=== PATIENT | female | born 1990 | race Caucasian/White ===

== ENCOUNTER 2020-01-05 00:25 | Emergency (ER) | payer OTHER ==
[~2020-01-05] VITALS: Ht 160 cm; Wt 54.4 kg
[~2020-01-05 00:25] MED LIST: BACTRIM DS 8001 TA1 PO; IBU800 M1 PO; PRENATAL1 TA2 PO; TRAMADOL HCL50 MG PO
[2020-01-05 01:55] LABS: BASO # 0.1 10*3/uL (0.0-0.1); BASO % 0.4 % (0.0-1.0); EOS # 0.3 10*3/uL (0.0-0.4); EOS % 2.2 % (1.0-4.0); LYMPH # 2.2 10*3/uL (1.3-4.4); LYMPH % 14.3 % (27.0-41.0); MEAN CELL VOLUME 92.7 fl (81.0-99.0); MEAN CORPUSCULAR HGB 29.7 pg (27.0-31.0); MEAN CORPUSCULAR HGB CONC 32.1 g/dl (33.0-37.0); MONO % 6.8 % (3.0-9.0); NEUT # 11.4 10*3/uL (2.3-7.9); NEUT % 75.4 % (47.0-73.0); PLATELET COUNT AUTOMATED 320 10*3/uL (130-400); RED BLOOD COUNT 4.64 10*6/uL (4.10-5.10); RED CELL DISTRI WIDTH 13.2 % (0-14.5); WHITE BLOOD COUNT 15.1 10*3/uL (4.8-10.8)
[2020-01-05 02:11] LABS: ALBUMIN 3.3 gm/dl (3.1-4.5); ALKALINE PHOSPHATASE 69 U/L (45-117); BUN 14 mg/dl (7-24); CHLORIDE 112 mmol/L (98-107); CREATININE 0.68 mg/dL (0.55-1.02); POTASSIUM 3.5 mmol/L (3.5-5.1); SGOT/AST 9 IU/L (3-35); SGPT/ALT 17 U/L (12-78); SODIUM 142 mmol/L (136-145)
[2020-01-05 03:13] LABS: BILIRUBIN NEGATIVE (NEGATIVE); BLOOD 3+ (NEGATIVE); CLARITY SL CLOUDY (CLEAR); COLOR YELLOW (YELLOW); GLUCOSE NEGATIVE (NEGATIVE); KETONE NEGATIVE (NEGATIVE); LEUKO ESTERASE TRACE (NEGATIVE); NITRITE NEGATIVE (NEGATIVE); PH 6.5 (5.0-9.0); UROBILINOGEN 0.2 E.U./dl (0.2-1.0)
[2020-01-05 03:26] LABS: EPITHELIAL CELLS 16-20
[2020-01-05 03:27] LABS: BACTERIA 1+; RBC 16-20 rbc/hpf (0-2)
[2020-01-05] MEDS ORDERED: ZITHROMAX250 MG PO (04:49)
== END 2020-01-05 05:02 | disposition home or self-care (01) ==
LOC: ED 00:25
PROVIDERS: Emergency Medicine
DX: J40 Bronchitis, not specified as acute or chronic (principal); J32.9 Chronic sinusitis, unspecified; R11.10 Vomiting, unspecified; F17.200 Nicotine dependence, unspecified, uncomplicated; Z79.899 Other long term (current) drug therapy

== ENCOUNTER 2022-04-01 00:06 | Emergency (ER) | payer SELFPAY ==
[~2022-04-01 00:06] MED LIST changes: +ZITHROMAX250 MG PO
== END 2022-04-01 00:22 | disposition home or self-care (01) ==
LOC: ED
DX: G47.00 Insomnia, unspecified (principal); Z79.899 Other long term (current) drug therapy

== ENCOUNTER 2025-01-13 09:17 | Emergency (ER) | payer SELFPAY ==
[~2025-01-13] VITALS: Wt 77.1 kg
[2025-01-13] MEDS ORDERED: PREDNISONE20 M1 PO (09:44)
[2025-01-13] MEDS ORDERED: CIPROFLOX-DEXA7.5 ML OT (09:44)
[2025-01-13] MEDS ORDERED: OCUFLOX 5 ML5 ML OP (10:52)
== END 2025-01-13 09:51 | disposition home or self-care (01) ==
LOC: ED 09:17
DX: H66.91 Otitis media, unspecified, right ear (principal); L24.9 Irritant contact dermatitis, unspecified cause; H92.02 Otalgia, left ear